=== PATIENT | female | born 1995 | race Hispanic/Latino ===

== ENCOUNTER 2020-11-11 15:10 | Emergency (ER) | payer BC, MEDICAID, OTHER ==
[2020-11-11 16:58] LABS: BASOPHILS % (AUTO) 0.4 % (0.0-5.0); EOSINOPHILS % (AUTO) 1.5 % (0.0-8.0); LYMPHOCYTES % (AUTO) 19.4 % (21.0-51.0); MEAN CORPUSCULAR HEMOGLOBIN 29.9 pg (27.0-33.0); MEAN CORPUSCULAR HGB CONC 34.2 g/dL (32.0-36.0); MEAN CORPUSCULAR VOLUME 87.4 fL (79-99); MONOCYTES % (AUTO) 5.9 % (3.0-13.0); NEUTROPHILS % (AUTO) 72.7 % (40.0-77.0); PLATELET COUNT (AUTO) 264 K/uL (130-400); RED BLOOD CELL COUNT(AUTO) 4.35 MIL/uL (4.00-5.50); RED CELL DISTRIBUTION WIDTH 12.4 % (11.0-15.5); WHITE BLOOD COUNT (AUTO) 7.5 K/uL (4.8-10.8)
[2020-11-11 17:08] LABS: CREATININE 0.6 mg/dL (0.5-1.5); POTASSIUM 3.4 mmol/L (3.5-5.1)
[2020-11-11 17:28] LABS: APPEARANCE,URINE Clear (CLEAR); BILIRUBIN,URINE Negative (NEGATIVE); COLOR,URINE Yellow (YELLOW); GLUCOSE, URINE (UA) Negative (NEGATIVE); KETONES,URINE >=80 mg/dL (NEGATIVE); LEUKOCYTE ESTERASE ,URINE Negative (NEGATIVE); NITRATE,URINE Negative (NEGATIVE); OCCULT BLOOD,URINE Negative (NEGATIVE); PH,URINE 5.5 (5.0-8.0); PROTEIN,URINE Negative (NEGATIVE); UROBILINOGEN,URINE 0.2 mg/dL (0.2-1.0)
[2020-11-11 17:34] LABS: ALBUMIN 3.2 g/dL (3.5-5.0); BILIRUBIN,TOTAL 0.2 mg/dL (0.2-1.0); TOTAL PROTEIN, SERUM 7.1 g/dL (6.0-8.3)
== END 2020-11-11 18:21 | disposition home or self-care (01) ==
LOC: EDH 15:10
DX: O20.0 Threatened abortion (principal); Z3A.13 13 weeks gestation of pregnancy
CPT/HCPCS: 36415; 76801; 80053; 81003; 83690; 84702; 85025; 86900; 86901

== ENCOUNTER 2021-09-10 07:37 | Day surgery (SDC) | payer BC ==
[2021-09-02 11:45] LABS: BASOPHILS % (AUTO) 0.5 % (0.0-5.0); EOSINOPHILS % (AUTO) 2.1 % (0.0-8.0); HEMATOCRIT 40.6 % (36-48); LYMPHOCYTES % (AUTO) 26.2 % (21.0-51.0); MEAN CORPUSCULAR HEMOGLOBIN 28.2 pg (27.0-33.0); MEAN CORPUSCULAR HGB CONC 31.8 g/dL (32.0-36.0); MEAN CORPUSCULAR VOLUME 88.8 fL (79-99); MONOCYTES % (AUTO) 7.3 % (3.0-13.0); NEUTROPHILS % (AUTO) 63.7 % (40.0-77.0); PLATELET COUNT (AUTO) 255 K/uL (130-400); RED BLOOD CELL COUNT(AUTO) 4.57 MIL/uL (4.00-5.50); RED CELL DISTRIBUTION WIDTH 13.8 % (11.0-15.5); WHITE BLOOD COUNT (AUTO) 5.6 K/uL (4.8-10.8)
[2021-09-10] VITALS (19 sets, daily range): BP systolic 116–131; BP diastolic 66–85
[~2021-09-10] VITALS: Ht 152.4 cm; Wt 81.8 kg
[2021-09-10] MEDS: LACTATED RINGERS 1000ML 1,000 ML IV SCH ×2 (08:09→09:06)
[2021-09-10] MEDS ORDERED: MIDAZOLAM HCL 1 MG/ML 2ML VIAL ONE (08:30)
[2021-09-10] MEDS ORDERED: PROPOFOL 10 MG/ML 20ML VIAL IV ONE ×2 (08:30→09:24)
[2021-09-10] MEDS ORDERED: FENTANYL CITRATE PF 50 MCG/1 ML 2ML VIAL ONE ×2 (08:31)
[2021-09-10] MEDS ORDERED: ROCURONIUM 10MG/1ML SYR 10 MG/ML ML ONE (08:40)
[2021-09-10] MEDS ORDERED: MEPERIDINE-PF 25 MG/ML SYG ONE ×2 (08:49→09:32)
[2021-09-10] MEDS ORDERED: ONDANSETRON 4MG INJ ONE (08:50)
[2021-09-10] MEDS ORDERED: GLYCOPYRROLATE 1 MG/5 ML SYRINGE ONE (09:11)
[2021-09-10] MEDS ORDERED: NEOSTIGMINE 5MG/5ML SYR IV ONE (09:12)
[2021-09-10] MEDS ORDERED: ACETAMINOPHEN WITH CODEINE 1 TAB TAB ONE (10:30)
[2021-09-10] MEDS ORDERED: ACETAMINOPHEN WITH CODEINE 1 TAB TAB PO PRN (10:30)
== END 2021-09-10 11:25 | disposition home or self-care (01) ==
LOC: DAH 07:37
PROVIDERS: ATTEND Specialist
DX: Z30.2 Encounter for sterilization (principal); Z20.822 Contact with and (suspected) exposure to COVID-19; N81.2 Incomplete uterovaginal prolapse; E66.01 Morbid (severe) obesity due to excess calories
CPT/HCPCS: 36415 ×2; 58671; 84703 ×2; 85025; 86850 ×2; 86900 ×2; 86901 ×2; 87635; A4215 ×2; A4221; A4222; A4223; A4264; A4351; A4663; A6260; C1769 ×2; C9803; J2175 ×2; J2250; J2405; J2704 ×2; J2710; J3010 ×2; J3490; J7030; J7120

== ENCOUNTER 2022-01-02 11:27 | Emergency (ER) | payer BC ==
[~2022-01-02] VITALS: Ht 152.4 cm; Wt 82.6 kg
[2022-01-02 12:08] LABS: BASOPHILS % (AUTO) 0.1 % (0.0-5.0); EOSINOPHILS % (AUTO) 0.2 % (0.0-8.0); HEMATOCRIT 38.6 % (36-48); LYMPHOCYTES % (AUTO) 15.5 % (21.0-51.0); MEAN CORPUSCULAR HEMOGLOBIN 27.9 pg (27.0-33.0); MEAN CORPUSCULAR HGB CONC 32.4 g/dL (32.0-36.0); MEAN CORPUSCULAR VOLUME 86.2 fL (79-99); MONOCYTES % (AUTO) 5.3 % (3.0-13.0); NEUTROPHILS % (AUTO) 78.8 % (40.0-77.0); PLATELET COUNT (AUTO) 203 K/uL (130-400); RED BLOOD CELL COUNT(AUTO) 4.48 MIL/uL (4.00-5.50); RED CELL DISTRIBUTION WIDTH 12.6 % (11.0-15.5); WHITE BLOOD COUNT (AUTO) 8.3 K/uL (4.8-10.8)
[2022-01-02] MEDS: FAMOTIDINE 20MG VIAL IV ONE ×2 (12:13→12:30)
[2022-01-02] MEDS: ONDANSETRON 4MG INJ ONE (12:13)
[2022-01-02] MEDS: ONDANSETRON 4MG INJ IVP ONE (12:13)
[2022-01-02 12:16] LABS: CREATININE 0.5 mg/dL (0.5-1.5); POTASSIUM 3.5 mmol/L (3.5-5.1)
[2022-01-02 12:20] LABS: ALBUMIN 3.7 g/dL (3.5-5.0); BILIRUBIN,TOTAL 0.7 mg/dL (0.2-1.0); TOTAL PROTEIN, SERUM 7.2 g/dL (6.0-8.3)
[2022-01-02 12:25] LABS: APPEARANCE,URINE Clear (CLEAR); BILIRUBIN,URINE Negative (NEGATIVE); COLOR,URINE Yellow (YELLOW); GLUCOSE, URINE (UA) Negative (NEGATIVE); KETONES,URINE Negative (NEGATIVE); LEUKOCYTE ESTERASE ,URINE Trace (NEGATIVE); NITRATE,URINE Negative (NEGATIVE); OCCULT BLOOD,URINE Negative (NEGATIVE); PH,URINE 6.5 (5.0-8.0); PROTEIN,URINE Negative (NEGATIVE); UROBILINOGEN,URINE 0.2 mg/dL (0.2-1.0)
[2022-01-02] MEDS: 0.9%NACL 1000ML 1,000 ML IV ONE (12:30)
[2022-01-02] MEDS ORDERED: IOHEXOL 350 MG/ML 100ML INFUS..BTL IV ONE (12:35)
[2022-01-02 12:36] LABS: HCG,QUAL RESULT NEGATIVE (NEGATIVE)
[2022-01-02 12:38] LABS: BACTERIA,URINE Rare /HPF (None Seen); MUCUS,URINE Few LPF (None Seen); RBC,URINE 0-1 /HPF (0-1); SQUAMOUS EPITHELIAL CELL,UR Few /HPF (0-2)
[2022-01-02 14:25] VITALS: BP 102/70
[2022-01-02] MEDS ORDERED: CEPH500B PO (14:33)
[2022-01-02] MEDS ORDERED: POLY17PO4 PO (14:33)
== END 2022-01-02 14:52 | disposition home or self-care (01) ==
LOC: EDH 11:27
DX: N39.0 Urinary tract infection, site not specified (principal); K59.00 Constipation, unspecified; Z98.51 Tubal ligation status
CPT/HCPCS: 36415; 74177; 80053; 81001; 81025; 83690; 85025; 96361; 96374; 96375; 99284; J2405; J3490; J7030; Q9967

== ENCOUNTER 2024-07-20 20:54 | Emergency (ER) | payer BC ==
[~2024-07-20] VITALS: Ht 152.4 cm; Wt 63.5 kg
[~2024-07-20 20:54] MED LIST: CEPH500B PO; POLY17PO4 PO
[2024-07-20 21:02] VITALS: BP 144/97; PULSE 78; RESP 16; TEMP 98.4; O2SAT 99
[2024-07-20] MEDS: ketOROlac 15MG/ML VIAL (15MG/ML) IM STA (21:18)
[2024-07-20] MEDS: morPHINE 4 MG SYG ONE (22:15)
[2024-07-20] MEDS: ondanSETRON 4MG INJ ONE (22:15)
[2024-07-24] MEDS ORDERED: ondanSETRON 4MG INJ IVP ONE (14:00)
[2024-07-24] MEDS ORDERED: morPHINE 4 MG SYG IVP ONE (14:00)
== END 2024-07-20 22:19 | disposition home or self-care (01) ==
LOC: EDH 20:54
DX: S62.396A Other fracture of fifth metacarpal bone, right hand, initial encounter for closed fracture (principal); Z98.51 Tubal ligation status; W22.09XA Striking against other stationary object, initial encounter; Y93.89 Activity, other specified; Y92.812 Truck as the place of occurrence of the external cause; Y99.8 Other external cause status
CPT/HCPCS: 99284; 26605; 96374; 96375; 73130 ×2; 96372; J2405; J2270; J1885 ×2